=== PATIENT | male | born 2000 | race Hispanic/Latino ===

== ENCOUNTER 2021-12-12 11:27 | Emergency (ER) | payer OTHER ==
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
[2021-12-12 12:22] VITALS: BP 118/87; TEMP 98.6; O2SAT 100
== END 2021-12-12 12:15 | disposition home or self-care (01) ==
LOC: ER 11:27
DX: M54.2 Cervicalgia (principal); V49.60XA Unspecified car occupant injured in collision with unspecified motor vehicles in traffic accident, initial encounter
CPT/HCPCS: 72125